=== PATIENT | female | born 1960 | race Hispanic/Latino ===

== ENCOUNTER → 2018-02-26 | Outpatient (CLI) | payer MEDICAID | END | disposition home or self-care (01) | LOC: SLP 20:28 | DX: G47.30 Sleep apnea, unspecified (principal) | CPT/HCPCS: 95810 ==

== ENCOUNTER → 2018-03-06 | Outpatient (CLI) | payer MEDICAID | END | disposition home or self-care (01) | LOC: SLP 20:59 | DX: G47.30 Sleep apnea, unspecified (principal) | CPT/HCPCS: 95811 ==

== ENCOUNTER 2021-07-26 05:30 | Day surgery (SDC) | payer MEDICAID ==
[2021-07-25 11:27] LABS: BASOPHILS % (AUTO) 0.3 % (0.0-5.0); EOSINOPHILS % (AUTO) 1.4 % (0.0-8.0); HEMATOCRIT 40.5 % (36-48); LYMPHOCYTES % (AUTO) 25.8 % (21.0-51.0); MEAN CORPUSCULAR HGB CONC 30.6 g/dL (32.0-36.0); MEAN CORPUSCULAR VOLUME 94.8 fL (79-99); MONOCYTES % (AUTO) 6.2 % (3.0-13.0); NEUTROPHILS % (AUTO) 65.7 % (40.0-77.0); PLATELET COUNT (AUTO) 281 K/uL (130-400); RED BLOOD CELL COUNT(AUTO) 4.27 MIL/uL (4.00-5.50); RED CELL DISTRIBUTION WIDTH 13.5 % (11.0-15.5); WHITE BLOOD COUNT (AUTO) 9.5 K/uL (4.8-10.8)
[2021-07-25 14:01] VITALS: BP 152/77
[2021-07-26] VITALS (14 sets, daily range): BP systolic 108–136; BP diastolic 61–88
[~2021-07-26] VITALS: Ht 147.3 cm; Wt 89.4 kg
[~2021-07-26 05:30] MED LIST: HYDR-4068 PO; LACT1CAP25 PO; LEVO100C4 PO; VITAMIN D PO
[2021-07-26] MEDS ORDERED: LACTATED RINGERS 1000ML 1,000 ML IV ONE (06:00)
[2021-07-26] MEDS ORDERED: CEFAZOLIN SODIUM 1 GM VIAL ONE (06:00)
[2021-07-26] MEDS ORDERED: SUCCINYLCHOLINE CHLORIDE 20 MG/ML 10 ML VIAL ONE (07:37)
[2021-07-26] MEDS ORDERED: DEXAMETHASONE SOD PHOSPHATE 10MG/ML 1ML VIAL ONE (07:37)
[2021-07-26] MEDS ORDERED: LIDOCAINE PF 100MG/5ML (2%) SYRINGE 5ML ONE (07:37)
[2021-07-26] MEDS ORDERED: ONDANSETRON 4MG INJ ONE (07:37)
[2021-07-26] MEDS ORDERED: NEOSTIGMINE 5MG/5ML SYR IV ONE (07:38)
[2021-07-26] MEDS ORDERED: GLYCOPYRROLATE 1 MG/5 ML SYRINGE ONE (07:38)
[2021-07-26] MEDS ORDERED: ROCURONIUM 10MG/1ML SYR 10 MG/ML ML ONE (07:38)
[2021-07-26] MEDS ORDERED: PROPOFOL 10 MG/ML 20ML VIAL IV ONE (07:38)
[2021-07-26] MEDS ORDERED: MIDAZOLAM HCL 1 MG/ML 2ML VIAL ONE (07:38)
[2021-07-26] MEDS ORDERED: FENTANYL CITRATE PF 50 MCG/1 ML 2ML VIAL ONE (07:39)
[2021-07-26] MEDS ORDERED: MEPERIDINE-PF 25 MG/ML SYG ONE (07:58)
[2021-07-26] MEDS ORDERED: LACTATED RINGERS 1000ML 1,000 ML IV SCH (08:00)
[2021-07-26] MEDS ORDERED: 0.9%NACL 10ML VIAL ONE (10:06)
[2021-07-26] MEDS ORDERED: PHENYLEPHRINE HCL 10 MG/ML 1ML VIAL IV ONE (10:06)
[2021-07-26] MEDS ORDERED: IBUPROFEN 600 MG TABLET PO PRN (11:30)
== END 2021-07-26 11:45 | disposition home or self-care (01) ==
LOC: DAH 05:30
PROVIDERS: ATTEND Obstetrics & Gynecology
DX: N95.0 Postmenopausal bleeding (principal); N88.2 Stricture and stenosis of cervix uteri; E66.9 Obesity, unspecified; Z79.899 Other long term (current) drug therapy; Z20.822 Contact with and (suspected) exposure to COVID-19
CPT/HCPCS: 36415; 58120; 85025; 86850; 86900; 86901; 87635; 88305; A4215; A4221; A4222; A4223; A4315; A4663; A6260; C9803; J0330; J1100; J2175; J2250; J2370; J2405; J2710; J3010; J3490 ×3; J7030; J7120; J0690; J2001; J2704

== ENCOUNTER → 2022-07-11 | Outpatient (CLI) | payer MEDICAID | END | disposition home or self-care (01) | LOC: RAH 14:14 | PROVIDERS: ATTEND Physical Medicine & Rehabilitation | DX: M43.17 Spondylolisthesis, lumbosacral region (principal); M48.07 Spinal stenosis, lumbosacral region; M43.8X7 Other specified deforming dorsopathies, lumbosacral region; M41.27 Other idiopathic scoliosis, lumbosacral region; Z98.1 Arthrodesis status | CPT/HCPCS: 72114 ==

== ENCOUNTER 2022-12-11 14:20 | Emergency (ER) | payer MEDICAID ==
[~2022-12-11] VITALS: Ht 147.3 cm; Wt 86.6 kg
[2022-12-11 15:54] VITALS: BP 121/74; PULSE 80; RESP 16; O2SAT 98
[2022-12-11] MEDS ORDERED: ONDANSETRON 4MG INJ IVP ONE (18:00)
[2022-12-11] MEDS ORDERED: MORPHINE 2 MG SYG IM ONE (18:00)
[2022-12-11] MEDS ORDERED: 0.9%NACL 1000ML 1,000 ML IV ONE (18:00)
[2022-12-11 18:39] LABS: BASOPHILS # (AUTO) 0.05 K/uL (0.00-0.20); BASOPHILS % (AUTO) 0.5 % (0.0-5.0); EOSINOPHILS # (AUTO) 0.23 K/uL (0.00-0.70); EOSINOPHILS % (AUTO) 2.1 % (0.0-8.0); HEMATOCRIT 43.9 % (36-48); IMMATURE GRANULOCYTE ABSOLUTE 0.04 K/uL (0-1); LYMPHOCYTES # (AUTO) 3.8 K/uL (1.0-4.8); LYMPHOCYTES % (AUTO) 34.4 % (21.0-51.0); MEAN CORPUSCULAR HEMOGLOBIN 29.8 pg (27.0-33.0); MEAN CORPUSCULAR HGB CONC 31.7 g/dL (32.0-36.0); MONOCYTES # (AUTO) 0.9 K/uL (0.1-1.0); MONOCYTES % (AUTO) 7.8 % (3.0-13.0); NEUTROPHILS % (AUTO) 54.8 % (40.0-77.0); PLATELET COUNT (AUTO) 257 K/uL (130-400); RED BLOOD CELL COUNT(AUTO) 4.67 MIL/uL (4.00-5.50); RED CELL DISTRIBUTION WIDTH 13.5 % (11.0-15.5)
[2022-12-11 18:49] LABS: CREATININE 0.8 mg/dL (0.5-1.5); POTASSIUM 4.4 mmol/L (3.5-5.1)
[2022-12-11 18:55] LABS: ALBUMIN 3.8 g/dL (3.5-5.0); BILIRUBIN,TOTAL 0.2 mg/dL (0.2-1.0); TOTAL PROTEIN, SERUM 7.8 g/dL (6.0-8.3)
[2022-12-11 20:29] LABS: APPEARANCE,URINE CLEAR (CLEAR); BILIRUBIN,URINE NEGATIVE (NEGATIVE); COLOR,URINE LIGHT-YELLOW (YELLOW); GLUCOSE, URINE (UA) NEGATIVE (NEGATIVE); KETONES,URINE NEGATIVE (NEGATIVE); LEUKOCYTE ESTERASE ,URINE NEGATIVE Leu/uL (NEGATIVE); NITRATE,URINE NEGATIVE (NEGATIVE); OCCULT BLOOD,URINE SMALL (NEGATIVE); PROTEIN,URINE NEGATIVE (NEGATIVE); UROBILINOGEN,URINE 0.2 mg/dL (0.2-1.0)
[2022-12-11 20:33] LABS: ADD UA MICROSCOPIC YES; MUCUS,URINE RARE LPF (None Seen); SQUAMOUS EPITHELIAL CELL,UR MOD /HPF (0-2); UNCLASSIFIED CRYSTAL 1 /HPF (None Seen)
[2022-12-11] MEDS ORDERED: IOHEXOL 350 MG/ML 100ML INFUS..BTL IV ONE (20:38)
[2022-12-11] MEDS ORDERED: LACT10SO5 PO (21:55)
== END 2022-12-11 22:12 | disposition home or self-care (01) ==
LOC: EDH 14:20
DX: K59.00 Constipation, unspecified (principal); E03.9 Hypothyroidism, unspecified; G89.29 Other chronic pain; Z87.442 Personal history of urinary calculi
CPT/HCPCS: 99285; 74177; 96374; 96361; 80053; 83690; 85025; 81001; 36415; 96372; J2270; J7030; J2405; Q9967

== ENCOUNTER 2023-06-21 14:10 | Emergency (ER) | payer MEDICAID ==
[~2023-06-21] VITALS: Ht 147.3 cm; Wt 87.1 kg
[~2023-06-21 14:10] MED LIST changes: +LACT10SO5 PO
[2023-06-21 15:38] LABS: BASOPHILS # (AUTO) 0.05 K/uL (0.00-0.20); BASOPHILS % (AUTO) 0.5 % (0.0-5.0); EOSINOPHILS # (AUTO) 0.16 K/uL (0.00-0.70); EOSINOPHILS % (AUTO) 1.6 % (0.0-8.0); HEMATOCRIT 43.4 % (36-48); IMMATURE GRANULOCYTE ABSOLUTE 0.05 K/uL (0-1); LYMPHOCYTES % (AUTO) 29.6 % (21.0-51.0); MEAN CORPUSCULAR HEMOGLOBIN 29.7 pg (27.0-33.0); MEAN CORPUSCULAR HGB CONC 31.8 g/dL (32.0-36.0); MEAN CORPUSCULAR VOLUME 93.3 fL (79-99); MONOCYTES # (AUTO) 0.7 K/uL (0.1-1.0); MONOCYTES % (AUTO) 6.6 % (3.0-13.0); NEUTROPHILS # (AUTO) 6.2 K/uL (1.8-7.7); NEUTROPHILS % (AUTO) 61.2 % (40.0-77.0); PLATELET COUNT (AUTO) 259 K/uL (130-400); RED BLOOD CELL COUNT(AUTO) 4.65 MIL/uL (4.00-5.50); RED CELL DISTRIBUTION WIDTH 12.9 % (11.0-15.5); WHITE BLOOD COUNT (AUTO) 10.1 K/uL (4.8-10.8)
[2023-06-21 15:42] LABS: APPEARANCE,URINE CLOUDY (CLEAR); BILIRUBIN,URINE NEGATIVE (NEGATIVE); COLOR,URINE YELLOW (YELLOW); GLUCOSE, URINE (UA) NEGATIVE (NEGATIVE); KETONES,URINE NEGATIVE (NEGATIVE); LEUKOCYTE ESTERASE ,URINE NEGATIVE Leu/uL (NEGATIVE); NITRATE,URINE NEGATIVE (NEGATIVE); OCCULT BLOOD,URINE SMALL (NEGATIVE); PH,URINE 5.5 (5.0-8.0); PROTEIN,URINE 10 mg/dL (NEGATIVE); UROBILINOGEN,URINE 0.2 mg/dL (0.2-1.0)
[2023-06-21 15:48] LABS: CREATININE 0.7 mg/dL (0.5-1.0); POTASSIUM 3.7 mmol/L (3.5-5.1)
[2023-06-21 15:52] LABS: ADD UA MICROSCOPIC YES
[2023-06-21 15:59] LABS: ALBUMIN 3.3 g/dL (3.5-5.0); BILIRUBIN,TOTAL 0.4 mg/dL (0.2-1.0); TOTAL PROTEIN, SERUM 7.6 g/dL (6.0-8.3)
[2023-06-21 16:14] LABS: BACTERIA,URINE RARE /HPF (None Seen); MUCUS,URINE FEW LPF (None Seen); SQUAMOUS EPITHELIAL CELL,UR FEW /HPF (0-2)
[2023-06-21] MEDS: TAMSULOSIN HCL 0.4 MG CAP.ER.24H PO ONE (17:25)
[2023-06-21] MEDS ORDERED: TAMS-1 PO (17:34)
[2023-06-21] MEDS ORDERED: KETO10TA2 PO (17:34)
[2023-06-21 17:45] VITALS: BP 131/65; PULSE 77; RESP 20; O2SAT 98
== END 2023-06-21 18:14 | disposition home or self-care (01) ==
LOC: EDH 14:10
DX: N20.0 Calculus of kidney (principal)
CPT/HCPCS: 36415; 74176; 80053; 81001; 85025; 96372

== ENCOUNTER 2023-08-26 13:33 | Emergency (ER) | payer MEDICAID ==
[~2023-08-26] VITALS: Ht 147.3 cm; Wt 59.9 kg
[~2023-08-26 13:33] MED LIST changes: +KETO10TA2 PO; -LACT1CAP25 PO; +LACT1CAP26 PO; +TAMS-1 PO
[2023-08-26 15:01] LABS: MEAN CORPUSCULAR HEMOGLOBIN 29.8 pg (27.0-33.0); MEAN CORPUSCULAR HGB CONC 31.9 g/dL (32.0-36.0); MEAN CORPUSCULAR VOLUME 93.3 fL (79-99); PLATELET COUNT (AUTO) 255 K/uL (130-400); RED CELL DISTRIBUTION WIDTH 12.8 % (11.0-15.5); WHITE BLOOD COUNT (AUTO) 9.2 K/uL (4.8-10.8)
[2023-08-26 15:03] LABS: APPEARANCE,URINE CLEAR (CLEAR); BILIRUBIN,URINE NEGATIVE (NEGATIVE); COLOR,URINE LIGHT-YELLOW (YELLOW); GLUCOSE, URINE (UA) NEGATIVE (NEGATIVE); KETONES,URINE NEGATIVE (NEGATIVE); LEUKOCYTE ESTERASE ,URINE NEGATIVE Leu/uL (NEGATIVE); NITRATE,URINE NEGATIVE (NEGATIVE); OCCULT BLOOD,URINE SMALL (NEGATIVE); PROTEIN,URINE NEGATIVE (NEGATIVE); UROBILINOGEN,URINE 0.2 mg/dL (0.2-1.0)
[2023-08-26 15:04] LABS: ADD UA MICROSCOPIC YES
[2023-08-26 15:12] LABS: BACTERIA,URINE RARE /HPF (None Seen); MUCUS,URINE RARE LPF (None Seen); SQUAMOUS EPITHELIAL CELL,UR RARE /HPF (0-2); WBC,URINE 0-1 /HPF (0-1)
[2023-08-26 15:13] LABS: CREATININE 0.9 mg/dL (0.5-1.0); POTASSIUM 3.9 mmol/L (3.5-5.1)
[2023-08-26 15:18] LABS: ALBUMIN 3.4 g/dL (3.5-5.0); BILIRUBIN,TOTAL 0.3 mg/dL (0.2-1.0); TOTAL PROTEIN, SERUM 7.6 g/dL (6.0-8.3)
[2023-08-26] MEDS: ONDANSETRON 4MG INJ IVP ONE (15:28)
[2023-08-26] MEDS: 0.9%NACL 1000ML 1,000 ML IV SCH (15:28)
[2023-08-26] MEDS: MORPHINE 4 MG SYG IVP ONE (15:29)
[2023-08-26 15:43] LABS: BAND NEUTROPHILS % (MANUAL) 5 % (0-2); EOSINOPHILS % (MANUAL) 2 % (1-6); LYMPHOCYTES % (MANUAL) 33 % (22-44); MAN.DIFF COMMENT-IMPRESSION MANUAL DIFFERENTIAL; MONOCYTES % (MANUAL) 3 % (2-9); PLATELET MORPHOLOGY COMMENT ADEQUATE; SEGMENTED NEUTROPHILS % 57 % (40-70); TOTAL CELLS COUNTED 100; WBC MORPHOLOGY CONSISTENT W/DIFF
[2023-08-26] MEDS: KETOROLAC 15MG/ML VIAL (15MG/ML) IV ONE (16:22)
[2023-08-26 19:23] VITALS: BP 142/65; PULSE 72; RESP 18; O2SAT 99
[2023-08-26] MEDS ORDERED: IBUP-2070 PO (19:25)
[2023-08-26] MEDS ORDERED: ONDA-243 PO (19:25)
== END 2023-08-26 19:31 | disposition home or self-care (01) ==
LOC: EDH 13:33
DX: N20.0 Calculus of kidney (principal)
CPT/HCPCS: 99285; 74176; 96374; 96375; 80053; 83690; 85025; 81001; 36415; J7030; J2405; J2270; J1885

== ENCOUNTER 2025-03-23 13:21 | Emergency (ER) | payer MEDICAID ==
[~2025-03-23] VITALS: Ht 147.3 cm; Wt 94.3 kg
[~2025-03-23 13:21] MED LIST changes: +ACIDOPHILUS1 EACH PO; +IBUP-1492 PO; +LACT-441 PO; -LACT10SO5 PO; -LACT1CAP26 PO; -LEVO100C4 PO; +LEVO100C5 PO; +ONDA-243 PO; -TAMS-1 PO; +TAMS-55 PO
[2025-03-23 13:39] VITALS: BP 132/67; PULSE 82; RESP 16; TEMP 97.9; O2SAT 96
[2025-03-23] MEDS ORDERED: IBUP-2077 PO (14:04)
[2025-03-23] MEDS ORDERED: AMOX1TAB16 PO (14:04)
--- NOTE | 2025-03-23 14:05 | ERN ---
ED Note History of Present Illness Stated Complaint: BILATERAL EAR PAIN Chief Complaint: Earache Time Seen by MD: 13:25 Dictation: PATIENT IS A 64-YEAR-OLD FEMALE COMING IN WITH BILATERAL EAR PAIN FOR THE LAST TWO MONTHS. SHE STATES SHE HAS SEEN HER DOCTOR TWICE AND WENT THROUGH THE 1ST MEDICATIONS AND THEN HER DOCTOR LAST WEEK CALLED HER IN OFLOXACIN DROPS SHE SAID THAT IS NOT HELPING THAT MUCH THERE WAS NO FEVER NO CHILLS NO NAUSEA VOMITING SHE DENIES ANY HEADACHE THERE WAS NO MASTOID TENDERNESS IN TRIAGE ROOM. Allergies: Coded Allergies: No Known Allergies (Verified Allergy, Unknown, 07/25/21) Home Meds Active Scripts Ibuprofen (Ibuprofen 800 mg Tab) 800 Mg Tab, 800 MG PO Q8H PRN for fever or pain, #30 TAB 0 Refills Prov:ZAIN VERDUZCO POWER BUILDER DEVELOPER 03/23/25 Amoxicillin/Potassium Clav (Amox Tr-K Clv 875-125 mg Tab) 875 Mg-125 Mg Tablet, 1 EACH PO BID for 10 Days, #20 TAB 0 Refills Prov:ZAIN VERDUZCOP 03/23/25 Ondansetron (Ondansetron Odt) 4 Mg Tab.rapdis, 4 MG PO Q6HPRN PRN for nausea, #16 TAB 0 Refills Prov:BONNIE BEST MD 08/26/23 Ibuprofen (Ibuprofen) 600 Mg Tablet, 600 MG PO Q6H PRN for PAIN, #30 TAB Prov:BONNIE BEST MD 08/26/23 Ketorolac Tromethamine (Ketorolac Tromethamine) 10 Mg Tablet, 10 MG PO TID PRN for PAIN, #21 TAB Prov:RADHA RIVERA POWER BUILDER DEVELOPER 06/21/23 Tamsulosin HCl (Flomax) 0.4 Mg Cap.er.24h, 0.4 MG PO DAILY, #14 CAPSULE. Prov:RADHA RIVERA POWER BUILDER DEVELOPER 06/21/23 Lactulose (Lactulose) 10 Gm/15 Ml Solution, 10 GM PO DAILY for constipation for 30 Days, #240 ML Prov:FRANKLIN FORREST TECHNICIAN ANATOMIC PATHOLOGY 12/11/22 Reported Medications Levothyroxine Sodium (Levothyroxine) 100 Mcg Capsule, 100 MCG PO AM, CAP 07/25/21 Lactobacillus Acidophilus (Acidophilus) 1 Each Capsule, 1 EACH PO AM, CAP 07/25/21 [Vitamin D] 125 No Conflict Check, 125 MG PO AM 07/25/21 Hydrocodone/Acetaminophen (Hydrocodon-Acetaminophn 10-325) 1 Each Tablet, 1 EACH PO TID PRN for PAIN, TAB 07/25/21 Past Medical History Past Medical History: Hypothyroid Additional Past Medical Hx: CHRONIC BACK PAIN, FATTY LIVER Surgical History: Other Surgical History Other: CERVICAL NECK SX, LOWER BACK SX, BILAT HAND SX, RT FOOT SX, HEMORRHOID SX Family History: Negative Social History: Negative, Lives with family History: Not Applicable RN Note Reviewed/Agreed w/PFSH: Yes Review of System Dictation CONSTITUTIONAL: NEGATIVE EXCEPT FOR HPI HEAD/FACE: NEGATIVE EXCEPT FOR HPI EENT: NEGATIVE EXCEPT FOR HPI BILATERAL EAR PAIN GREATER ON THE RIGHT RESPIRATORY: NEGATIVE EXCEPT FOR HPI GASTROINTESTINAL/ABDOMINAL: NEGATIVE EXCEPT FOR HPI GENITOURINARY: NEGATIVE EXCEPT FOR HPI MUSCULOSKELETAL: NEGATIVE EXCEPT FOR HPI INTEGUMENTARY: NEGATIVE EXCEPT FOR HPI NEUROLOGICAL/PSYCH: NEGATIVE EXCEPT FOR HPI HEMATOLOGIC/LYMPHATIC: NEGATIVE EXCEPT FOR HPI ALL SYSTEMS NEGATIVE, EXCEPT NOTED ABOVE. 13 POINT REVIEW OF SYSTEMS ASSESSED AND ALL NEGATIVE EXCEPT FOR ABOVE. Initial Vital Sign VS Vital Signs Date Time Temp Pulse Resp B/P (MAP) Pulse Ox O2 Delivery O2 Flow Rate FiO2 03/23/25 13:24 97.9 86 16 135/72 96 Room Air 0 03/23/25 13:39 21 Physical Exam Dictation VITAL SIGNS REVIEWED GENERAL APPEARANCE: ALERT, ORIENTED X 3, MILD ACUTE DISTRESS, WELL DEVELOPED, NOURISHED. OBESE HEAD AND FACE: NON-TRAUMATIC. EYES: PERRL, PINK CONJUNCTIVAS, EYELID NO TRAUMA, ANTERIOR CHAMBER WITH ARCUS SENILIS. EARS: PINNAS INTACT AND NO SIGNS OF TRAUMA BILATERAL TMS INTACT PATIENT HAS DIFFUSE OTIC CANAL ERYTHEMA AND SWELLING. NO MASTOID TENDERNESS BILATERALLY NOSE: NO DISCHARGE, NO BLEEDING. OROPHARYNX: MOUTH NORMAL, TONGUE PINK, PHARYNX CLEAR,NO ERYTHEMA, TONSILS NO EXUDATES, NO ABSCESSES NOTED, MUCOUS MEMBRANE MOIST NECK: SUPPLE, NON-TENDER, NO THYROMEGALY, NO MASSES, NO JVD, NO BRUITS BREAST:DEFERRED CHEST:NO TENDERNESS, NO CREPITUS, NO PARADOXICAL MOVEMENT, NO RETRACTIONS LUNGS:CLEAR, WELL-VENTILATED, SYMMETRIC, NO RALES, NO WHEEZING, NO RHONCHI, NO STRIDOR, GOOD BREATH SOUNDS BILATERALLY HEART: REGULAR RATE, REGULAR RHYTHM, NO MURMUR, NO GALLOPS VASCULAR: NO PERIPHERAL EDEMA, ABDOMEN: SOFT, POSITIVE BOWEL SOUNDS, NONDISTENDED, NO GUARDING, NONTENDER, NO REBOUND, NO MASSES NO HEPATOMEGALY, NO SPLENOMEGALY, NO TRONCOSO'S SIGN, NO HERNIAS. RECTAL: DEFERRED GENITAL: DEFERRED NEUROLOGICAL: NORMAL SPEECH, MOTOR FUNCTION INTACT, SENSORY FUNCTION INTACT MUSCULOSKELETAL: NECK NONTENDER, FULL RANGE OF MOTION, BACK NONTENDER, FULL RANGE OF MOTION, EXTREMITIES: NONTENDER, FULL RANGE OF MOTION SKIN: COLOR PINK, DRY, NO TURGOR, NO RASH, NO LACERATIONS, NO ABRASIONS, NO CONTUSIONS. LYMPHATIC: DEFERRED Results (Laboratory/Radiology) Labs Reviewed?: Yes ED Course ED Course Orders Procedure Category Date Status Time Ceftriaxone 1g Vial PHA 03/23/25 Complete (Rocephine 1g Inj) 14:00 Acetaminophen 500mg PHA 03/23/25 Complete Tab (Tylenol 500mg T 14:00 Current Medications Medications (Trade) Dose Ordered Sig/Annie Route PRN Reason Start Time Stop Time Status Last Admin Dose Admin Acetaminophen (TYLenol 500MG TAB) 1,000 mg ONCE ONCE PO 03/23/25 14:00 03/23/25 14:01 DC 03/23/25 14:19 Ceftriaxone Sodium (ROCEphine 1G INJ) 1 gm ONCE ONCE IM 03/23/25 14:00 03/23/25 14:01 DC 03/23/25 14:18 Vital Signs Date Time Temp Pulse Resp B/P (MAP) Pulse Ox O2 Delivery O2 Flow Rate FiO2 03/23/25 13:39 97.9 82 16 132/67 96 Room Air* 0 21 03/23/25 13:24 97.9 86 16 135/72 96 Room Air 0 1402/PATIENT WILL BE TREATED EMPIRICALLY FOR ACUTE OTITIS EXTERNA WITH FAILURE OF OUTPATIENT TREATMENT FAILURE. GIVEN A SHOT OF ROCEPHIN WE WILL BE TOLD TO CONTINUE OFLOXACIN DROPS AND WE WILL BE PRESCRIBED AUGMENTIN. Medical Decision Making MDM MEDICAL DISCHARGE MAKING BASED ON HPI AND PHYSICAL EXAMINATION. NO LABS OR IMAGING INDICATED. WE WILL TREAT PATIENT FOR OUTPATIENT TREATMENT FAILURE FOR ACUTE OTITIS EXTERNA BILATERALLY ROCEPHIN 1 G IN ER PATIENT TOLD TO CONTINUE OFLOXACIN DROPS DIRECTED WITH [place] SHE WILL BE PRESCRIBED AUGMENTIN 875 B.I.D. 10 DAYS TOLD SEE HER PRIMARY CARE DOCTOR IN SEVERAL DAYS IF NO IMPROVEMENT FOR ENT REFERRAL DX & DISP Disposition: Discharge Departure Impression: Primary Impression: Otitis externa of both ears Additional Impression: Failure of outpatient treatment Condition: Stable Scripts Ibuprofen (Ibuprofen 800 mg Tab) 800 Mg Tab 800 MG PO Q8H PRN for fever or pain, #30 TAB 0 Refills Prov: ZAIN VERDUZCO 03/23/25 Amoxicillin/Potassium Clav (Amox Tr-K Clv 875-125 mg Tab) 875 Mg-125 Mg Tablet 1 EACH PO BID for 10 Days, #20 TAB 0 Refills Prov: ZAIN VERDUZCO 03/23/25 Additional Instructions: FOLLOW-UP WITH PRIMARY CARE PROVIDER IN 1 TO 2 DAYS. TAKE MEDICATIONS DIRECTED HERE IN THE EMERGENCY ROOM. OKAY TO CONTINUE HOME MEDICATIONS UNLESS OTHERWISE DISCUSSED DURING YOUR VISIT IN THE EMERGENCY ROOM TODAY. RETURN TO YOUR NEAREST EMERGENCY ROOM IF SYMPTOMS WORSEN OR IF THERE IS NO IMPROVEMENT. CALL 911 IF YOU NEED IMMEDIATE ASSISTANCE. TAKE TYLENOL OR MOTRIN [id number] NEEDED AND IF NO CONTRAINDICATIONS ARE PRESENT. INCREASE ORAL HYDRATION. A WOUND CULTURE OR URINE CULTURE WAS ORDERED HERE IN THE EMERGENCY ROOM DEPARTMENT PLEASE FOLLOW-UP WITH PRIMARY CARE PROVIDER AND ADVISE THEM TO GET REPEAT PORTS FROM OUR FACILITY. IF YOU HAD ANY TAYO WRAP/SPLINTS THAT WERE APPLIED HERE, PLEASE DO NOT REMOVE THEM UNTIL YOU SEE YOUR PRIMARY CARE OR SPECIALTY. TAKE IBUPROFEN NEEDED FOR PAIN WITH FOOD. CONTINUE THE EAR DROPS FROM YOUR DOCTOR WITH [place] DIRECTED TAKE AUGMENTIN DIRECTED TWICE A DAY FOR 10 DAYS. SEE YOUR DOCTOR IN THE NEXT 3-4 DAYS IF NO IMPROVEMENT FOR I YOUR NOSE AND THROAT SPECIALIST REFERRAL Referrals: TIGRE ARGUELLES MD (PCP) Time of Disposition: 14:03 I have reviewed the case, and I agree with, Diagnosis and Plan ZAIN VERDUZCO Mar 23, 2025 14:05 LORI AKHTAR DO Mar 23, 2025 17:04
== END 2025-03-23 14:24 | disposition home or self-care (01) ==
LOC: EDH 13:21
DX: H60.93 Unspecified otitis externa, bilateral (principal); E03.9 Hypothyroidism, unspecified; G89.29 Other chronic pain; Z87.19 Personal history of other diseases of the digestive system
CPT/HCPCS: 99283; 96372; J0696